=== PATIENT | male | born 1965 | race Caucasian/White ===

== ENCOUNTER → 2016-10-22 | Outpatient (CLI) | payer OTHER ==
[~2016-10-22] MED LIST: ATOR10TA PO; CORE6.25 PO; FLUO-1 PO; FURO20 PO; KCL20 PO; LISI2.5T55 PO; RIVA20 PO
[2016-10-22 13:01] LABS: BLOOD GAS BASE EXCESS 1.3 mmol/L (-2-2); BLOOD GAS CARBOXYHEMOGLOBIN 1.3 % (0-4); BLOOD GAS HCO3 26 mmol/L (22-26); BLOOD GAS METHEMOGLOBIN 0.9 % (0-2); BLOOD GAS O2 HGB SATURATION 94 % (90-100); BLOOD GAS OXYGEN CONTENT 21.9 Vol % (12.0-20.0); BLOOD GAS PCO2 42 mmHg (38-42); BLOOD GAS PO2 79 mmHg (61-120); BLOOD GAS TOTAL HGB 16.6 G/DL (12.0-16.0); CRITICAL VALUE NO; FIO2 21 %; TEMP CORR TO 98.6
[2016-10-22 13:02] LABS: DRAW SITE RT RADIAL; NUMBER OF ARTERIAL PUNCTURES 1; STAT NO; ULNAR PULSE PRESENT
--- NOTE | 2016-10-25 09:52 | RSPPFT ---
DATE OF PROCEDURE: 10/22/16 COMMENTS: Spirometry with FVC of 2.8 predicted 4.7, FEV1 of 1.6 predicted 3.4, FEV1/FVC ratio 57% predicted 73%. Air trapping with RV at 3.9 predicted 2.1. DLCO is within the predicted range. IMPRESSION: On the basis of the above, patient has an obstructive lung defect with no response to acutely inhaled bronchodilator. Flow volume loop is suggestive of fixed airways obstruction and should be interpreted in a clinical context.
== END ==
LOC: HRSP 12:06
PROVIDERS: ATTEND Internal Medicine Pulmonary Disease
DX: R06.02 Shortness of breath (principal)
CPT/HCPCS: 36600; 82805; 94060; 94620; 94726; 94729